=== PATIENT | female | born 1970 | race Caucasian/White ===

== ENCOUNTER → 2016-12-24 | Outpatient (CLI) | payer OTHER ==
[2016-10-09 18:00] VITALS: BP 116/80
[~2016-12-24] MED LIST: ALPR0.25 PO; BUPIVACAINE MPF 0.25% 10 ML VIAL. ONE; BUPR150T8 PO; CHOL500015 PO; CYCL10TA2 PO; GABA-585 PO; HYDR-2678 PO; HYDR-2679 PO; IBUP-1060 PO; IOHEXOL 180 MG/ML 10 ML VIAL. ONE; LACT1CAP8 PO; LEVO100T5 PO; LEVO50TA PO; MELO15TA6 PO; METH4TAB PO; MULT1TAB52 PO; NABU750T PO; NATURAL CALM; NORE1TAB85 PO; OMEG500C3 PO; [UNRECOGNIZED DRUG - OTHER]; methylPREDNISolone ACETATE 80 MG/ML VIAL. ONE
--- NOTE | 2016-12-25 03:10 | PN ---
DATE: 12/24/2016 DIAGNOSES: 1. Lumbar radiculopathy with lumbar degenerative disk disease, lumbar spondylosis. 2. Right sacroiliitis. HISTORY OF PRESENT ILLNESS: The patient is a 46-year-old female who returns for followup status post previous lumbar epidural steroid injections and facet joint injections without significant improvement, last seen on 02/12/2014. The patient reports that over that time, she has had significant pain in the right posterior hip as well as the low back radiating to the right posterior thigh and right groin into a fairly significant extent, worse with activity, standing, walking, especially with driving a car standing on her right leg. Any walking more than about 30 minutes causes significant pain where she needs to actually lay down to get the pressure reduced and the pain reduced. The patient reports no loss of motor function. She has started physical therapy recently, which she feels is becoming helpful with the pain with some decreased tightness in the right thigh and leg, but significant pain still in the posterior hip and back radiating to the right gluteus, occasionally, some tingling in the lower leg on the lateral aspect as well on the right side only. The patient reports it is causing some depression. She also had hysterectomy in 09/2016, which is helping with help some of the pelvic pain, but it has not significantly reduced it. Reports no loss of motor function, but significant fatigability in the right leg and again pain limiting her activities and her ability to participate in physical therapies. PAST MEDICAL HISTORY: Significant for gastroesophageal reflux, colitis, clindamycin, and arthritis. PREVIOUS SURGERY: , laparoscopic cholecystectomy and recent hysterectomy. CURRENT MEDICATIONS: Updated today and include collagen, iron, B complex vitamins, fish oil, ibuprofen, and thyroid replacement, and also Lortab. ALLERGIES: THE PATIENT HAS ALLERGY TO CLINDAMYCIN. FAMILY HISTORY: Significant for hypertension, arthritis, and strokes. SOCIAL HISTORY: The patient is a registered nurse working night shifts, currently part-time. Does not smoke, drinks alcohol very rarely, does not use any other illegal illicit drugs or other substances. REVIEW OF SYSTEMS: The patient's review of systems was updated as complete, full and well documented on the patient's chart. All systems reviewed and otherwise negative. PHYSICAL EXAMINATION: VITAL SIGNS: Today, the patient's blood pressure is 122/79, pulse 84, respirations 18, temperature 98.2 degrees Fahrenheit, and weight is 125 pounds. GENERAL: The patient is awake, alert, oriented, appropriate, very pleasant demeanor. HEENT: Head shows normocephalic and atraumatic. Extraocular movements are intact and symmetrical. Oral cavity, mucous membranes are moist and pink. Dentition is intact. NECK: Shows anterior throat supple without palpable lymphadenopathy noted. Swallow reflex is symmetrical. CHEST: Shows normal on inspection. Breath sounds clear to auscultation bilaterally. HEART: Shows S1 and S2 clear. No murmurs auscultated. ABDOMEN: Soft, flat, nontender, and nondistended. No palpable organomegaly noted. No rebound or guarding demonstrated. BACK: Shows spine grossly midline. Normal appearing thoracic kyphosis and lumbar lordotic curvature. Lumbar paraspinous muscle is symmetrical in appearance without scars, lesions or other abnormalities on the skin. Paraspinous musculature shows some very mild tenderness with palpation in the low lumbar distribution diffusely, more on the right than the the left, but again only diffusely with palpation over the posterior superior iliac spine on the right side with significant tenderness with palpation and radiation into the lateral hip and anterior aspect of the groin on the right side. This is true with palpation over the right sacroiliac regions as well, significant tenderness with palpation on the joint and radiation to the posterior gluteus, left side is nontender. The patient has good rotational motion of lumbar spine, both laterally as well as extension and flexion without significant increase in pain. Lower extremities show deep tendon reflexes 2+ in the patellar, 1+ tendo-calcaneus tendons are equal. Motor exam is strong with 5/5 dorsiflexion and extension. The patient does have some tenderness with right quadriceps and hamstring flexion and with external rotation of the right hip is significantly tender as well. Left side is nontender. Peripheral pulses are 2+ in the posterior tibial and dorsalis pedis pulses. No peripheral edema is noted. Options were discussed with the patient and the patient's old chart was reviewed and current medication regimen and updated as noted as well as previous review of systems updated. We discussed right sacroiliac joint injection. She has significant tenderness over this region with symptomatic qualities of sacroiliac degenerative changes also with x-ray evidence of mild degenerative change in the right sacroiliac joint. Risks were discussed including but not limited to bleeding, infection, possibility of intravascular injection sequelae, spread of local anesthetic and numbness, side effects of steroid medications, exposure to fluoroscopy as well as poor results regarding pain control. The patient understands and wishes to proceed. The patient will return to clinic in approximately 2 weeks for followup, was counseled on return appointment, activity level and side effects to be aware of. DIAGNOSIS: Right sacroiliitis. PROCEDURE: Right sacroiliac joint injection with C-arm fluoroscopic guidance under sterile prep and drape using local anesthetic. MEDICATIONS INJECTED: Depo-Medrol 80 mg plus 3 mL of 0.25% bupivacaine and 1.5 mL of Isovue contrast. CONDITION AT DISCHARGE: Stable. The patient tolerated procedure well, had no complications. HAMILTON FRIAS MD DR: EVA/jese JOB#: [id number] / [id number]
== END | disposition home or self-care (01) ==
LOC: PNCL 08:31
PROVIDERS: ATTEND Anesthesiology
DX: M46.1 Sacroiliitis, not elsewhere classified (principal); M51.16 Intervertebral disc disorders with radiculopathy, lumbar region; M47.26 Other spondylosis with radiculopathy, lumbar region; I10 Essential (primary) hypertension; M19.90 Unspecified osteoarthritis, unspecified site; Z90.49 Acquired absence of other specified parts of digestive tract; Z90.710 Acquired absence of both cervix and uterus; Z72.89 Other problems related to lifestyle
CPT/HCPCS: 27096; J1040; J3490; G0260

== ENCOUNTER → 2017-01-16 | Outpatient (CLI) | payer OTHER ==
[2016-10-09 18:00] VITALS: BP 116/80
[~2017-01-16] MED LIST changes: -BUPIVACAINE MPF 0.25% 10 ML VIAL. ONE; -IOHEXOL 180 MG/ML 10 ML VIAL. ONE; -methylPREDNISolone ACETATE 80 MG/ML VIAL. ONE
--- NOTE | 2017-01-16 10:10 | PAIN ---
DATE OF SERVICE: 01/16/2017 PROGRESS NOTE FOR PAIN CLINIC DIAGNOSES: 1. Lumbar radiculopathy with lumbar degenerative disk disease, lumbar spondylosis. 2. Right sacroiliitis. HISTORY OF PRESENT ILLNESS: The patient is a 46-year-old female, who returns for followup status post right-sided sacroiliac joint injection on 12/24/2009. The patient reports did very well with this, about 50% improvement overall took few days to ____ noticed a difference after about 3 days with feeling much better went to yoga class and feels that she "overdid it" with stretching in yoga and cause some pain, to return in the low back, but at that time, it was about 80% better, now is about 50%, overall the patient did have some significant diarrhea symptoms after the injection, but was able to keep herself hydrated and recover from this over a couple of days. The patient reports otherwise doing well. No new motor or sensory deficits. Still some pain in the low back, as well as in the right posterior hip, worse with walking and changing positions, standing. The patient reports 3 on a scale of 10 currently and some ____ electrical sensations as well occasionally in the low back and right hip. The patient reports otherwise no new motor or sensory deficits, no new bowel or bladder incontinence or other complaints. PHYSICAL EXAMINATION: VITAL SIGNS: Today, the patient's blood pressure is 119/70, pulse 88, respirations 16, temperature is 98.1 degrees Fahrenheit, weight is 119 pounds. GENERAL: The patient is awake, alert, oriented, appropriate, very pleasant demeanor. HEENT: Head shows normocephalic, atraumatic. Extraocular movements are intact and symmetrical. Oral cavity shows mucous membranes moist and pink. Dentition is intact. NECK: Shows anterior throat supple without palpable lymphadenopathy noted. Swallow reflex is symmetrical. Neck shows full rotational motion of the cervical spine without difficulty. CHEST: Shows normal on inspection. Breath sounds clear to auscultation bilaterally. HEART: Shows S1 and S2 clear. ABDOMEN: Soft, nontender, nondistended. No palpable organomegaly, no new rebound or guarding demonstrated. BACK: Shows spine grossly midline. Normal appearing thoracic kyphosis and lumbar lordotic curvature. Lumbar paraspinous muscle shows some [id number] tenderness bilaterally in the lumbar paraspinous muscles only in the inferior aspect without radiation with some moderate tenderness over the right sacroiliac joint as well as the posterior superior iliac spine on the right side, left side is nontender. The patient has full rotational motion of lumbar spine, both laterally as well as extension and flexion without difficulty. EXTREMITIES: Lower extremities showed deep tendon reflexes at 2+ in the patellar tendons. Motor exam is strong with 5/5 dorsiflexion, extension, quadriceps and hamstring flexion. PLAN: Options were discussed with the patient. We will hold on any further injection at this time, she is doing better and would like to increase her stretching and strengthening exercises. We did show her some stretches for the sacroiliac joint, bone in bilateral sides. The patient will follow up at this time on as needed basis. HAMILTON FRIAS MD DR: EVA/jese JOB#: [id number] / [id number]
== END | disposition home or self-care (01) ==
LOC: PNCL 07:41
PROVIDERS: ATTEND Anesthesiology
DX: M51.16 Intervertebral disc disorders with radiculopathy, lumbar region (principal); M47.896 Other spondylosis, lumbar region; M46.1 Sacroiliitis, not elsewhere classified
CPT/HCPCS: 99212

== ENCOUNTER → 2017-03-31 | Outpatient (CLI) | payer OTHER ==
[2016-10-09 18:00] VITALS: BP 116/80
[~2017-03-31] MED LIST changes: -CHOL500015 PO; +CHOL500045 PO
--- NOTE | 2017-03-31 17:35 | RAD ---
DATE: 03/31/2017 EXAM: DIGITAL SCREEN BILAT W/CAD HISTORY: Screening study. COMPARISON: 01/23/2016 This study was interpreted with the benefit of Computerized Aided Detection (CAD). FINDINGS: Digital MLO and CC mammograms of both breasts were obtained. Comparison study is dated 01/19/2016. The breast parenchyma is heterogeneously dense which can obscure a lesion on mammography (breast density code C). Benign-appearing calcifications are seen within both breasts. No spiculated mass is seen. No malignant appearing calcification or area of architectural distortion is noted. Since the previous examination there has been no significant interval change. IMPRESSION: BI-RADS Category 1, negative. There is no mammographic evidence of malignancy. Routine yearly screening mammography is recommended for follow-up. BI-RADS CATEGORY: 1 NEGATIVE RECOMMENDED FOLLOW-UP: 12M 12 MONTH FOLLOW-UP PQRS compliance statement: Patient information was entered into a reminder system with a target due date 03/31/2018 for the next mammogram. Mammography is a sensitive method for finding small breast cancers, but it does not detect them all and is not a substitute for careful clinical examination. A negative mammogram does not negate a clinically suspicious finding and should not result in delay in biopsying a clinically suspicious abnormality. "Our facility is accredited by the [employer] Mammography Program."
== END | disposition home or self-care (01) ==
LOC: MAMMO 13:57
PROVIDERS: ATTEND Family Medicine
DX: Z12.31 Encounter for screening mammogram for malignant neoplasm of breast (principal); G89.18 Other acute postprocedural pain
CPT/HCPCS: 36415; G0202; 77067

== ENCOUNTER → 2017-10-01 | Outpatient (CLI) | payer OTHER ==
[2016-10-09 18:00] VITALS: BP 116/80
[2017-10-01 18:50] LABS: BASO % 0 % (0-3); EOS % 1 % (0-3); HEMOGLOBIN 12.5 g/dL (12.0-15.5); LYMPH # 1.8 x10^3/uL (1.0-4.8); LYMPH % 27 % (24-48); MEAN CORPUSCULAR HEMOGLOBIN 30 pg (25-35); MEAN CORPUSCULAR HGB CONC 33 g/dL (31-37); MEAN CORPUSCULAR VOLUME 92 fL (79-100); MONO % 6 % (0-9); NEUT % 66 % (31-73); PLATELET COUNT 202 x10^3/uL (140-400); RED BLOOD COUNT 4.14 x10^6/uL (3.50-5.40); RED CELL DISTRIBUTION WIDTH 12.7 % (11.5-14.5); WHITE BLOOD COUNT 6.6 x10^3/uL (4.0-11.0)
[2017-10-01 19:06] LABS: ALBUMIN 3.7 g/dL (3.4-5.0); ALBUMIN/GLOBULIN RATIO 1.2 (1.0-1.7); CALCIUM 8.1 mg/dL (8.5-10.1); CREATININE 0.7 mg/dL (0.6-1.0); GFR 90.9; POTASSIUM 3.8 mmol/L (3.5-5.1); TOTAL BILIRUBIN 0.3 mg/dL (0.2-1.0); TOTAL PROTEIN 6.9 g/dL (6.4-8.2)
== END | disposition home or self-care (01) ==
LOC: LAB 18:09
PROVIDERS: ATTEND Family Medicine
DX: E03.9 Hypothyroidism, unspecified (principal); M79.1 Myalgia; G62.9 Polyneuropathy, unspecified; R53.82 Chronic fatigue, unspecified; R19.7 Diarrhea, unspecified
CPT/HCPCS: 80053; 82607; 84436; 84443; 85025; 85651

== ENCOUNTER → 2017-10-05 | Outpatient (CLI) | payer OTHER ==
[2016-10-09 18:00] VITALS: BP 116/80
[2017-10-05 22:14] LABS: IMMUNOGLOBULIN A 133 mg/dL (87-352); IMMUNOGLOBULIN G 970 mg/dL (700-1600); IMMUNOGLOBULIN M 53 mg/dL (26-217)
[2017-10-07 13:20] LABS: TRANSGLUTAMINASE IGA AB <2 U/mL (0-3)
== END | disposition home or self-care (01) ==
LOC: LAB 11:01
PROVIDERS: ATTEND Allergy & Immunology
DX: R19.7 Diarrhea, unspecified (principal)
CPT/HCPCS: 36415; 82784; 83516

== ENCOUNTER → 2018-03-25 | Outpatient (CLI) | payer OTHER ==
[2018-03-25 17:20] LABS: FREE T4 0.86 ng/dL (0.76-1.46)
[2018-03-25 17:20] LABS: THYROID STIM HORMONE (TSH) 2.221 uIU/mL (0.358-3.74)
[2018-03-26 03:15] LABS: ESTRADIOL LEVEL 79.9 pg/mL (.)
[2018-03-26 03:15] LABS: FSH 4.7 mIU/mL (.)
== END | disposition home or self-care (01) ==
LOC: LAB 16:29
DX: N95.1 Menopausal and female climacteric states (principal)
CPT/HCPCS: 36415; 82670; 83001; 84439; 84443

== ENCOUNTER → 2018-07-12 | Outpatient (CLI) | payer OTHER ==
[2016-10-09 18:00] VITALS: BP 116/80
[2018-07-12 08:59] LABS: ALBUMIN 3.9 g/dL (3.4-5.0); ALBUMIN/GLOBULIN RATIO 1.2 (1.0-1.7); CALCIUM 8.7 mg/dL (8.5-10.1); CREATININE 0.8 mg/dL (0.6-1.0); GFR 77.6; POTASSIUM 4.2 mmol/L (3.5-5.1); TOTAL BILIRUBIN 0.4 mg/dL (0.2-1.0); TOTAL PROTEIN 7.2 g/dL (6.4-8.2)
[2018-07-12 09:23] LABS: FREE T4 0.82 ng/dL (0.76-1.46); THYROID STIM HORMONE (TSH) 0.952 uIU/mL (0.358-3.74)
[2018-07-12 20:11] LABS: FSH 5.6 mIU/mL (.); LUTEINIZING HORMONE 11.7 mIU/mL (.)
== END | disposition home or self-care (01) ==
LOC: LAB 08:08
PROVIDERS: ATTEND Internal Medicine Endocrinology, Diabetes & Metabolism
DX: E03.9 Hypothyroidism, unspecified (principal); I10 Essential (primary) hypertension; E87.6 Hypokalemia; K21.9 Gastro-esophageal reflux disease without esophagitis; R53.83 Other fatigue; Z87.891 Personal history of nicotine dependence; Z88.1 Allergy status to other antibiotic agents
CPT/HCPCS: 36415; 80053; 82533; 82670; 83001; 83002; 83036; 84439; 84443

== ENCOUNTER → 2019-03-24 | Outpatient (CLI) | payer OTHER ==
[2016-10-09 18:00] VITALS: BP 116/80
--- NOTE | 2019-03-24 11:59 | RAD ---
DATE: 03/24/2019. : MAMMO SHAE SCREENING BILATERAL. HISTORY: Routine mammographic screening. COMPARISON: 03/31/2017. This study was interpreted with the benefit of Computerized Aided Detection (CAD). FINDINGS: Breast Density: HETERO The breast parenchyma is heterogenously dense, which could reduce sensitivity of mammography. Breast parenchyma level C.. There are no suspicious masses, microcalcifications or architectural distortion. Scattered and coarse calcifications are benign. The parenchymal pattern is stable. A density medially on the left CC view has correlates on remote studies. BI-RADS CATEGORY: 2 BENIGN FINDING(S). RECOMMENDED FOLLOW-UP: 12M 12 MONTH FOLLOW-UP. PQRS compliance statement: Patient information was entered into a reminder system with a target due date 03/24/2020 for the next mammogram. Mammography is a sensitive method for finding small breast cancers, but it does not detect them all and is not a substitute for careful clinical examination. A negative mammogram does not negate a clinically suspicious finding and should not result in delay in biopsying a clinically suspicious abnormality. "Our facility is accredited by the [employer] Mammography Program."
--- NOTE | 2019-03-24 12:17 | RAD ---
MR of the right hip HISTORY: Right-sided hip pain. SI joint pain. TECHNIQUE: Routine multiplanar sequences are obtained. FINDINGS: No bone lesion, bone destruction, acute fracture. No femoral head osteonecrosis. The right sacroiliac joint is included and appears intact. No significant joint effusion at the right hip. Low-grade signal at the anterior labrum but no convincing evidence of a tear. Mild free pelvic fluid. Mild distention of the urinary bladder. There are degenerative changes of lower spine with disc bulging or protrusion at the lumbosacral junction, will be further evaluated on a separate MR of the lumbar spine to be performed today as well. Gluteus minimus and medius tendon attachments are intact. Hamstring tendon attachment intact. Iliopsoas tendon attachment intact. IMPRESSION: 1. No evidence of acute abnormality or internal derangement. 2. Minimal signal at the anterior labrum, but no convincing evidence of a tear. 3. Lumbosacral degenerative disease, correlate with separate MR lumbar spine report. Electronically signed by: Steven Mares MD (03/24/2019 12:14 PM) [id number]
--- NOTE | 2019-03-24 12:53 | RAD ---
MRI of the lumbar spine without contrast 03/24/2019 CLINICAL HISTORY: Low back pain which radiates down the right leg. TECHNIQUE: Unenhanced T1-weighted and T2-weighted sagittal and axial and inversion recovery sagittal images of the lumbar spine were obtained. FINDINGS: Comparison study is dated 01/23/2016. Minimal S-shaped curvature of the thoracolumbar spine is seen. Degenerative signal changes are seen involving the L5-S1 disc. Degenerative signal changes are seen within the marrow surrounding these discs. The conus medullaris is within normal limits in morphology, position, and signal characteristics. At the L1-2, L2-3, L3-4 and L4-5 disc spaces there are minimal to mild generalized disc bulges. Degenerative changes are seen involving the facet joints bilaterally. There is mild ligamentum flavum hypertrophy bilaterally. These findings when combined do not result in significant central spinal canal or neural foraminal stenosis. At the L5-S1 disc space there is a mild generalized disc bulge. Superimposed on this disc bulge is a focal central disc protrusion. This measures 2 mm in AP diameter. Degenerative changes are seen involving the facet joints bilaterally. There is mild ligamentum flavum hypertrophy bilaterally. These findings when combined do not result in significant central spinal canal or neural foraminal stenosis. Since the previous examination there has been no significant interval change. IMPRESSION: The changes of mild degenerative disc disease are seen involving the lumbar spine. These findings do not result in significant central spinal canal or neural foraminal stenosis at any level. Electronically signed by: Mauricio Horton MD (03/24/2019 12:50 PM) [id number]
== END | disposition home or self-care (01) ==
LOC: MRI 07:53
PROVIDERS: ATTEND Family Medicine
DX: Z12.31 Encounter for screening mammogram for malignant neoplasm of breast (principal); N64.89 Other specified disorders of breast; N32.89 Other specified disorders of bladder; M51.37 Other intervertebral disc degeneration, lumbosacral region; M51.16 Intervertebral disc disorders with radiculopathy, lumbar region; M47.817 Spondylosis without myelopathy or radiculopathy, lumbosacral region; M47.26 Other spondylosis with radiculopathy, lumbar region; M89.38 Hypertrophy of bone, other site
CPT/HCPCS: 72148; 72195; 77063; 77067

== ENCOUNTER → 2019-08-08 | Outpatient (CLI) | payer OTHER ==
[2016-10-09 18:00] VITALS: BP 116/80
[2019-08-08 13:27] LABS: FREE T4 1.03 ng/dL (0.76-1.46); THYROID STIM HORMONE (TSH) 0.735 uIU/mL (0.358-3.74)
== END | disposition home or self-care (01) ==
LOC: LAB 12:05
PROVIDERS: ATTEND Family Medicine
DX: E03.9 Hypothyroidism, unspecified (principal)
CPT/HCPCS: 36415; 84439; 84443

== ENCOUNTER → 2020-01-22 | Outpatient (CLI) | payer OTHER ==
[2016-10-09 18:00] VITALS: BP 116/80
[2020-01-22 10:16] LABS: BASO % 0 % (0-3); BILIRUBIN,URINE NEGATIVE (NEG); CLARITY,URINE CLEAR; COLOR,URINE YELLOW; EOS % 1 % (0-3); HEMOGLOBIN 13.9 g/dL (12.0-15.5); LYMPH # 1.4 x10^3/uL (1.0-4.8); LYMPH % 24 % (24-48); MEAN CORPUSCULAR HEMOGLOBIN 31 pg (25-35); MEAN CORPUSCULAR HGB CONC 33 g/dL (31-37); MEAN CORPUSCULAR VOLUME 92 fL (79-100); MONO # 0.3 x10^3/uL (0.0-1.1); MONO % 6 % (0-9); NEUT % 69 % (31-73); NITRITE,URINE NEGATIVE (NEG); PH,URINE 7.5 (<5.0-8.0); PLATELET COUNT 223 x10^3/uL (140-400); PROTEIN,URINE NEGATIVE (NEG-TRACE); RED BLOOD COUNT 4.55 x10^6/uL (3.50-5.40); RED CELL DISTRIBUTION WIDTH 13.3 % (11.5-14.5); UROBILINOGEN,URINE 0.2 mg/dL (0.2 mg/dL); WHITE BLOOD COUNT 5.8 x10^3/uL (4.0-11.0)
[2020-01-22 10:29] LABS: BACTERIA,URINE 0 /HPF (0-FEW); RBC,URINE 0 /HPF (0-2); SQUAMOUS EPITHELIAL CELL,UR FEW /LPF; WBC,URINE 0 /HPF (0-4)
[2020-01-22 11:03] LABS: ALBUMIN/GLOBULIN RATIO 1.3 (1.0-1.7); ALK PHOS 42 U/L (46-116); ALT (SGPT) 22 U/L (14-59); ANION GAP 7 (6-14); AST (SGOT) 19 U/L (15-37); BLOOD UREA NITROGEN 12 mg/dL (7-20); BUN/CREATININE RATIO 13 (6-20); CALCIUM 8.5 mg/dL (8.5-10.1); CARBON DIOXIDE 30 mmol/L (21-32); CHLORIDE 101 mmol/L (98-107); CHOLESTEROL 139 mg/dL (0-200); CREATININE 0.9 mg/dL (0.6-1.0); GFR 67.1; GLUCOSE 86 mg/dL (70-99); HDLC 55 mg/dL (40-60); LDLC 71 mg/dL (0-100); POTASSIUM 3.8 mmol/L (3.5-5.1); SODIUM 138 mmol/L (136-145); TOTAL BILIRUBIN 0.3 mg/dL (0.2-1.0); TOTAL PROTEIN 7.2 g/dL (6.4-8.2); TRIGLYCERIDES 63 mg/dL (0-150); VLDLC 13 mg/dL (0-40)
[2020-01-22 11:04] LABS: CHOLESTEROL/HDL RATIO 2.5; FREE T4 0.78 ng/dL (0.76-1.46); THYROID STIM HORMONE (TSH) 1.099 uIU/mL (0.358-3.74)
[2020-01-22 11:53] LABS: C-REACTIVE PROTEIN < 0.5 mg/L (0-3.3)
[2020-01-22 22:07] LABS: ESTRADIOL LEVEL 398.7 pg/mL (.); ESTRADIOL LEVEL 400.7 pg/mL (.); LUTEINIZING HORMONE 7.9 mIU/mL (.); PROGESTERONE 0.4 ng/mL (.); PROLACTIN 8.8 ng/mL (4.8-23.3)
[2020-01-23 02:06] LABS: HEMOGLOBIN A1C 5.3 % (4.8-5.6)
== END ==
LOC: LAB 09:19
DX: E27.49 Other adrenocortical insufficiency (principal); E27.9 Disorder of adrenal gland, unspecified; E78.5 Hyperlipidemia, unspecified; E88.9 Metabolic disorder, unspecified; R68.82 Decreased libido; E56.9 Vitamin deficiency, unspecified; R53.83 Other fatigue; E34.9 Endocrine disorder, unspecified; R63.5 Abnormal weight gain; E63.9 Nutritional deficiency, unspecified; E07.9 Disorder of thyroid, unspecified; E03.9 Hypothyroidism, unspecified
CPT/HCPCS: 80053; 80061; 81001; 82306; 82525; 82533; 82607; 82627; 82670; 82679; 82728; 83001; 83002; 83036; 83090; 83540; 83550; 84144; 84146; 84305; 84410; 84439; 84443; 84481; 84630; 85025; 86140; 86376

== ENCOUNTER → 2020-02-14 | Outpatient (CLI) | payer OTHER ==
[2016-10-09 18:00] VITALS: BP 116/80
[~2020-02-14] MED LIST changes: +ACET500T68 PO; +BUPIVACAINE MPF 0.25% 10 ML VIAL. ONE; +CYAN50004 PO; +KRIL1CAP5 PO; +MELO15TA23 PO; +MULT-121 PO; +SELE200C PO; +TURM500C4 PO
--- NOTE | 2020-02-14 09:51 | PAIN ---
DATE OF SERVICE: 02/14/2020 PROGRESS NOTE FOR PAIN CLINIC DIAGNOSES: Lumbar degenerative disk disease, lumbar spondylosis and right sacroiliitis and myofascial pain. HISTORY OF PRESENT ILLNESS: The patient is a 49-year-old female who returns for followup, last seen in 12/2016. The patient had right sacroiliac joint injection with about 50% improvement, only lasted about 1 month or so after the injection. The patient reports since that time, she has had multiple treatments with physical therapies, doing stretching and strengthening. She tried multiple medications, currently taking gabapentin and with significant pain in the low back, right side, right flank also into the mid upper back and into the right posterior gluteus, lateral thigh, groin and anterior thigh and into the pelvis as well on the right side and some into the flank and even into the lower abdominal aspect of the right side. The patient reports it is aching, sharp, tingling, burning, on and off in intensity. She has had multiple physical therapy treatments in the past and doing stretching and strengthening on her own. The patient reports current pain is 7 on a scale of 10 at its worst over the past week, 5 on average, 3 at its least and is a 5 today. The patient reports it is worse with walking, standing, changing positions, being on her feet, especially during working shifts when she is unable to sit or relax for prolonged periods. The patient reports it is becoming more noticeable, more tender with time. 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 She has had sacroiliac joint injections in the past as well with our office, which again were helpful, but only for a limited time. The patient reports the steroid medications have caused some gastrointestinal discomfort as well over the years and is not interested in any steroid injections. The patient describes the pain as tingling, burning, aching, sharp, on and off in intensity. The patient reports it awakens her from sleep occasionally, but she is taking gabapentin at night, which does decrease the frequency awakening. PHYSICAL EXAMINATION: VITAL SIGNS: The patient's blood pressure 115/71, pulse 83, respirations 16, temperature 98.1 degrees Fahrenheit, height is 5 feet 5 inches, weight is 133 pounds. GENERAL: The patient is awake, alert, oriented, appropriate, very pleasant demeanor. HEENT: Shows normocephalic, atraumatic. Extraocular movements are intact and symmetrical. Oral cavity: Mucous membranes moist and pink. Dentition is intact. NECK: Shows anterior throat supple without palpable lymphadenopathy noted. Swallow reflex symmetrical. CHEST: Shows normal on inspection. Breath sounds are clear to auscultation bilaterally. HEART: Shows S1, S2 clear. No murmurs auscultated. ABDOMEN: Soft, nontender, nondistended. BACK: Shows spine grossly in the midline, normal-appearing cervical lordotic curvature, thoracic kyphotic curvature and lumbar lordotic curvature. With respect to the thoracic paraspinous muscles and lumbar paraspinous muscles of very firm, very tender band-like and rope-like musculature in the inferior thoracic paraspinous musculature in the upper, middle and lower distribution of the lumbar paraspinous musculature as well as into the gluteus musculature on the right side, especially above and below of the posterior superior iliac spine and the iliac crest laterally with very firm rope-like musculature, very tender and is very minimally tender on the left side with very subtle musculature on the left, but much less tight compared to the right, still tenderness over the sacrum to moderate extent as well as the sacroiliac region on the right in the posterior superior iliac spine itself. EXTREMITIES: The patient's lower extremities show deep tendon reflexes 2+ in the patellar and 1+ tendo-calcaneus tendons. Motor exam is strong with 5/5 dorsiflexion, extension, quadriceps and hamstring flexion symmetrical. Peripheral pulses are 1+ posterior tibia. No peripheral edema is noted bilaterally. PLAN: Options were discussed with the patient. The patient's old chart was reviewed as her current medication regimen updated. Current review of systems updated today as well. We will proceed with trigger point injections of the identified musculature. Risks were discussed including but not limited to bleeding, infection, possibility of intravascular injection sequelae, spread of local anesthetic and numbness, side effects of steroid medication and poor results regarding pain control. The patient understands and wished to proceed. The patient will return to clinic in approximately 2 weeks for followup. Also order physical therapy with trigger point massage and myofascial release techniques, stretching, postural retraining as well as massage and lumbar traction. The patient will follow up after physical therapy is initiated as noted. DIAGNOSIS: Myofascial pain. PROCEDURE: Trigger point injections, right-sided thoracic paraspinous muscles, right-sided lumbar paraspinous musculature and right gluteus musculature under sterile prep and drape using local anesthetic. MEDICATION INJECTED: A total of 8 mL of 0.25% bupivacaine after negative aspiration at each injection site. CONDITION AT DISCHARGE: Stable. The patient tolerated procedure well, had no complications. HAMILTON FRIAS MD DR: EVA/jese JOB#: [id number] / [id number]
== END ==
LOC: PNCL 09:15
PROVIDERS: ATTEND Anesthesiology
DX: M79.18 Myalgia, other site (principal); M51.36 Other intervertebral disc degeneration, lumbar region; M47.816 Spondylosis without myelopathy or radiculopathy, lumbar region
CPT/HCPCS: 20553; J3490

== ENCOUNTER → 2020-03-22 | Outpatient (CLI) | payer OTHER ==
[2016-10-09 18:00] VITALS: BP 116/80
[~2020-03-22] MED LIST changes: -BUPIVACAINE MPF 0.25% 10 ML VIAL. ONE; +IOHEXOL 180 MG/ML 10 ML VIAL. ONE; +MULT-445 PO; -MULT1TAB52 PO; +methylPREDNISolone ACETATE 40 MG/ML VIAL. ONE; +methylPREDNISolone ACETATE 80 MG/ML VIAL. ONE
--- NOTE | 2020-03-22 10:50 | PAIN ---
DATE OF SERVICE: 03/22/2020 PROGRESS NOTE FOR PAIN CLINIC DIAGNOSES: 1. Lumbar radiculopathy with lumbar degenerative disk disease and lumbar spondylosis. 2. Right sacroiliitis. 3. Myofascial pain. HISTORY OF PRESENT ILLNESS: The patient is a 49-year-old female who returns for followup status post trigger point injection on last visit, which was 02/14/2020. The patient reports she did well with this for a limited period of time for about 3 weeks. The pain was decreased only about 50%. The pain is returning now on the right side of the low back, right lower extremity, radiating now mostly in the posterior gluteus, posterior thigh, lateral thigh, anterior thigh and posterior calf with tingling, burning, tight sensation, aching, sharp, on and off in intensity, but worse with activity, worse with working out and stretching. The patient has been seeing a chiropractor for manipulations which is helpful as well, but again limited time. Also, performing physical therapy both with physical therapist and on her own, which again is helpful, but only temporarily as well. The patient reports it awakens her from sleep about every 4 hours at night. She has to reposition and get back to sleep. No bowel or bladder incontinence. The patient reports the pain is a 9 on a scale of 10 at its worst over the past week, 5 on average, 2 at its least and is a 5 today. The patient reports no bowel or bladder incontinence. No motor or sensory deficits. PHYSICAL EXAMINATION: VITAL SIGNS: The patient's blood pressure 108/65, pulse 101, respirations 18, temperature 97.9 degrees Fahrenheit, height is 5 feet 5 inches, weight is 131 pounds. GENERAL: The patient is awake, alert, oriented, appropriate, very pleasant demeanor. HEENT: Shows normocephalic, atraumatic. Extraocular movements are intact and symmetrical. Oral cavity: Mucous membranes moist and pink. Dentition is intact. NECK: Shows anterior throat supple without palpable lymphadenopathy noted. Swallow reflex symmetrical. CHEST: Shows normal on inspection. Breath sounds clear to auscultation bilaterally. No rales, rhonchi or wheezes auscultated. HEART: Shows S1, S2 clear. No murmurs auscultated. ABDOMEN: Soft, nontender, nondistended. BACK: Shows spine grossly in the midline. Normal appearing thoracic kyphosis and lumbar lordotic curvature. Lumbar paraspinous muscle shows symmetrical on inspection, with palpation shows some moderate tenderness, more on the right than the left, but throughout the upper, middle and lower distribution of paraspinous musculature and some into the thoracic paraspinous on the right as well, but without specific trigger points, without atrophy, hypertrophy, no asymmetry. The patient has good rotational motion of lumbar spine, both laterally as well as extension and flexion without significant increase in pain. There is some very mild tenderness with deep palpation over the right posterior superior iliac spine and superior aspect of the sacroiliac joint, but only very mild tenderness without radiation. EXTREMITIES: The patient's lower extremities show deep tendon reflexes 2+ in the patellar, 1+ tendo-calcaneus tendons. Motor exam is 5/5 with dorsiflexion, extension, quadriceps and hamstring flexion symmetrical. Peripheral pulses are 1+ posterior tibia. No peripheral edema is noted. Gaenslen's maneuver is mildly positive on the right only, but not the left. Stuart's maneuver is negative bilaterally. Options were discussed with the patient. The patient's old chart was reviewed as her current medication regimen updated. Current review of systems updated today as well. We will proceed with a lumbar epidural steroid injection today with fluoroscopic guidance. Risks were discussed including but not limited to bleeding, infection, possibility of epidural hematoma, subsequent neurological compromise, dural puncture, headaches, spinal cord and/or nerve damage, side effects of steroid medication and poor results regarding pain control. The patient understands and wished to proceed. The patient will return to clinic in approximately 2 weeks for followup. She was counseled on return appointment, activity level and side effects to be aware of. DIAGNOSES: Lumbar radiculopathy with lumbar degenerative disk disease and lumbar spondylosis. PROCEDURE: Lumbar epidural steroid injection, translaminar approach L5-S1 level using C-arm fluoroscopic guidance under sterile prep and drape using local anesthetic. MEDICATION INJECTED: A total of 120 mg Depo-Medrol plus 10 mL of preservative-free normal saline and 2 mL of contrast. CONDITION AT DISCHARGE: Stable. The patient tolerated the procedure well, had no complications. HAMILTON FRIAS MD DR: EVA/jese JOB#: [id number] / [id number]
== END ==
LOC: PNCL 08:31
PROVIDERS: ATTEND Anesthesiology
DX: M51.16 Intervertebral disc disorders with radiculopathy, lumbar region (principal); M47.816 Spondylosis without myelopathy or radiculopathy, lumbar region; M46.1 Sacroiliitis, not elsewhere classified; M79.18 Myalgia, other site
CPT/HCPCS: 62323; J1030; J1040; Q9965

== ENCOUNTER → 2020-03-28 | Outpatient (CLI) | payer OTHER ==
[2016-10-09 18:00] VITALS: BP 116/80
[~2020-03-28] MED LIST changes: -IOHEXOL 180 MG/ML 10 ML VIAL. ONE; -methylPREDNISolone ACETATE 40 MG/ML VIAL. ONE; -methylPREDNISolone ACETATE 80 MG/ML VIAL. ONE
[2020-03-28 11:02] LABS: BASO % 0 % (0-3); EOS # 0.1 x10^3/uL (0.0-0.7); EOS % 1 % (0-3); HEMATOCRIT 37.8 % (36.0-47.0); HEMOGLOBIN 12.9 g/dL (12.0-15.5); LYMPH # 1.5 x10^3/uL (1.0-4.8); LYMPH % 23 % (24-48); MEAN CORPUSCULAR HEMOGLOBIN 31 pg (25-35); MEAN CORPUSCULAR HGB CONC 34 g/dL (31-37); MEAN CORPUSCULAR VOLUME 92 fL (79-100); MONO # 0.5 x10^3/uL (0.0-1.1); MONO % 7 % (0-9); NEUT # 4.6 x10^3/uL (1.8-7.7); NEUT % 69 % (31-73); PLATELET COUNT 227 x10^3/uL (140-400); RED BLOOD COUNT 4.12 x10^6/uL (3.50-5.40); RED CELL DISTRIBUTION WIDTH 12.8 % (11.5-14.5); WHITE BLOOD COUNT 6.7 x10^3/uL (4.0-11.0)
[2020-03-28 11:14] LABS: ALBUMIN 3.9 g/dL (3.4-5.0); ALBUMIN/GLOBULIN RATIO 1.2 (1.0-1.7); CALCIUM 8.2 mg/dL (8.5-10.1); GFR 59.4; POTASSIUM 3.9 mmol/L (3.5-5.1); TOTAL BILIRUBIN 0.2 mg/dL (0.2-1.0); TOTAL PROTEIN 7.1 g/dL (6.4-8.2)
[2020-04-04 17:09] LABS: ESTRADIOL LEVEL 37.6 pg/mL (.); PROGESTERONE 0.3 ng/mL (.)
== END ==
LOC: LAB 10:31
PROVIDERS: ATTEND Specialist/Technologist, Other Surgical Technologist
DX: E27.49 Other adrenocortical insufficiency (principal); E27.9 Disorder of adrenal gland, unspecified; E78.5 Hyperlipidemia, unspecified; E88.9 Metabolic disorder, unspecified; R68.82 Decreased libido; E56.9 Vitamin deficiency, unspecified; R53.83 Other fatigue; E34.9 Endocrine disorder, unspecified; R63.5 Abnormal weight gain; E63.9 Nutritional deficiency, unspecified; E07.9 Disorder of thyroid, unspecified; E03.9 Hypothyroidism, unspecified
CPT/HCPCS: 36415; 80053; 82627; 82670; 82679; 84144; 84402; 84403; 84439; 84481; 85025

== ENCOUNTER → 2020-04-18 | Outpatient (CLI) | payer OTHER ==
[2016-10-09 18:00] VITALS: BP 116/80
[2020-04-18 11:26] LABS: FREE T4 0.8 ng/dL (0.76-1.46)
[2020-04-18 21:08] LABS: ESTRADIOL LEVEL 76.5 pg/mL (.)
== END | disposition home or self-care (01) ==
LOC: LAB 10:37
DX: E78.5 Hyperlipidemia, unspecified (principal); E56.9 Vitamin deficiency, unspecified; E03.9 Hypothyroidism, unspecified; E34.9 Endocrine disorder, unspecified; E07.9 Disorder of thyroid, unspecified; E63.9 Nutritional deficiency, unspecified; E27.49 Other adrenocortical insufficiency; E27.9 Disorder of adrenal gland, unspecified; E88.9 Metabolic disorder, unspecified; R68.82 Decreased libido; R53.83 Other fatigue; R63.5 Abnormal weight gain
CPT/HCPCS: 36415; 82627; 82670; 82679; 84402; 84403; 84439; 84481

== ENCOUNTER → 2020-05-11 | Outpatient (CLI) | payer OTHER ==
[2016-10-09 18:00] VITALS: BP 116/80
--- NOTE | 2020-05-11 09:31 | PAIN ---
DATE OF SERVICE: 05/11/2020 PROGRESS NOTE FOR PAIN CLINIC DIAGNOSES: Lumbar radiculopathy with lumbar degenerative disk disease, lumbar spondylosis and right sacroiliitis and myofascial pain. HISTORY OF PRESENT ILLNESS: The patient is a 49-year-old female who returns for followup status post lumbar epidural steroid injection on 03/22/2020. The patient has had previous trigger point injections as well as sacroiliac injections multiple times with only about 40% improvement for a short period of time for about 2 weeks to 1 month depending on the procedure. The patient continues to have exacerbation of right sided pain, mid back, low back, upper back and shoulder, right side, right flank, right abdomen and right leg. The patient reports the pain is aching, sharp, but tight at times, tingling, burning, stabbing in the back and radiating to the leg at times. The patient reports also some increased pain in the right groin as well as right abdominal wall with the exacerbation of pain in the low back. The patient reports it is an 8 on a scale of 10 at its worst over the past week, 5 on average and 4 at its least and is a 5 today. The patient reports exacerbation with recent yoga stretching activities with right sided abdominal wall pain as well as right sided mid-upper back and shoulder pain as well as right low back pain. The patient is somewhat frustrated that the pain keeps returning despite multiple treatments and multiple modalities, it is improved temporarily, but only temporarily. The patient reports no new motor or sensory deficits, no bowel or bladder incontinence. PHYSICAL EXAMINATION: VITAL SIGNS: The patient's blood pressure is 111/74, pulse 84, respirations 18, temperature 98.0 degrees Fahrenheit, height is 5 feet 5 inches, weight is 134 pounds. GENERAL: The patient is awake, alert, oriented, appropriate, very pleasant demeanor. HEENT: Shows normocephalic, atraumatic. Extraocular movements are intact and symmetrical. Oral cavity: Mucous membranes are moist and pink. NECK: Shows anterior throat supple. Swallow reflex symmetrical. CHEST: Shows normal on inspection. Breath sounds are clear to auscultation bilaterally. No rales, rhonchi or wheezes auscultated. HEART: Shows S1, S2 clear. No murmurs auscultated. ABDOMEN: Soft, nontender. BACK: Shows spine grossly in the midline. Normal appearing cervical lordotic curvature, thoracic kyphotic curvature and lumbar lordotic curvature. Muscle tone is intact with somewhat increased tone and tight in the thoracic paraspinous musculature as well as the supra and infraspinatus musculature on the right, but not the left. This is true into the thoracic paraspinous musculature on the right side, more tender and firm than on the left, but without specific trigger points or radiation. The patient's lumbar spine shows normal lordotic curvature. Paraspinous musculature is bilaterally tender, but more tender on the right than the left, but firm throughout the upper, middle and lower distribution of paraspinous muscles. The patient has good rotational motion of the lumbar spine, both laterally greater than 10 degrees right and left as well as extension greater than 10 degrees, forward flexion 45 degrees without significant increase in pain. EXTREMITIES: The patient's lower extremities show deep tendon reflexes 2+ in the patellar, 1+ tendo-calcaneus tendons. Motor exam is strong with 5/5 dorsiflexion and extension. Peripheral pulses are 1+. No peripheral edema bilaterally. Options were discussed with the patient. The patient's old chart was reviewed as her current medication regimen updated. Current review of systems updated today as well. As the patient has had multiple modalities, sacroiliac joint injections, lumbar epidural steroid injections, trigger point injections in the musculature with only minimal decrease in pain, long-term approximately 40% at best on most times. We will recommend evaluation with regenerative therapy options as these may afford some longer long-term improvement. The patient will continue with stretching and strength exercises, activity as tolerated and exercise routinely and consistently, but with history of multiple modalities of procedure as well as physical therapies, exercises, etc., with only minimal long-term relief, we recommended regenerative options and the patient requests referral for such evaluation and we will make that referral, followup afterwards. HAMILTON FRIAS MD DR: EVA/jese JOB#: [id number] / [id number]
== END | disposition home or self-care (01) ==
LOC: PNCL 08:05
PROVIDERS: ATTEND Anesthesiology
DX: M51.16 Intervertebral disc disorders with radiculopathy, lumbar region (principal); M47.816 Spondylosis without myelopathy or radiculopathy, lumbar region; M46.1 Sacroiliitis, not elsewhere classified; Z79.899 Other long term (current) drug therapy
CPT/HCPCS: G0463

== ENCOUNTER → 2020-06-26 | Outpatient (CLI) | payer OTHER ==
[2016-10-09 18:00] VITALS: BP 116/80
[2020-06-26 13:38] LABS: FREE T4 0.8 ng/dL (0.76-1.46)
[2020-06-26 21:07] LABS: ESTRADIOL LEVEL 95.5 pg/mL (.)
== END | disposition home or self-care (01) ==
LOC: LAB 10:08
PROVIDERS: ATTEND Specialist/Technologist, Other Surgical Technologist
DX: E27.49 Other adrenocortical insufficiency (principal); E27.9 Disorder of adrenal gland, unspecified; R63.5 Abnormal weight gain; E07.9 Disorder of thyroid, unspecified; E78.5 Hyperlipidemia, unspecified; E88.9 Metabolic disorder, unspecified; R68.82 Decreased libido; N39.9 Disorder of urinary system, unspecified; E03.9 Hypothyroidism, unspecified; E63.9 Nutritional deficiency, unspecified; E34.9 Endocrine disorder, unspecified; N92.6 Irregular menstruation, unspecified
CPT/HCPCS: 36415; 82627; 82670; 82679; 84144; 84402; 84403; 84439; 84481

== ENCOUNTER → 2020-08-06 | Outpatient (CLI) | payer OTHER ==
[2016-10-09 18:00] VITALS: BP 116/80
[~2020-08-06] MED LIST changes: -NABU750T PO; +NABU750T7 PO
--- NOTE | 2020-08-08 13:20 | RAD ---
DATE: 08/06/2020 EXAM: MAMMO SHAE SCREENING BILATERAL HISTORY: Screening mammogram COMPARISON: 03/24/2019, 03/31/2017, 01/23/2016, 01/02/2015, 10/14/2010 This study was interpreted with the benefit of Computerized Aided Detection (CAD). Breast Density: The breast parenchyma shows scattered fibroglandular densities. Breast parenchyma level B. FINDINGS: There is no suspicious mass, suspicious calcification, or architectural distortion in either breast. A probable intramammary lymph node in the upper outer right breast is unchanged from 2009. IMPRESSION: No evidence of malignancy. BI-RADS CATEGORY: 1 NEGATIVE RECOMMENDED FOLLOW-UP: 12 MONTH FOLLOW-UP PQRS compliance statement: Patient information was entered into a reminder system with a target due date 08/07/2021 for the next mammogram. Mammography is a sensitive method for finding small breast cancers, but it does not detect them all and is not a substitute for careful clinical examination. A negative mammogram does not negate a clinically suspicious finding and should not result in delay in biopsying a clinically suspicious abnormality. "Our facility is accredited by the [employer] Mammography Program." MTDD
== END ==
LOC: MAMMO 12:17
PROVIDERS: ATTEND Obstetrics & Gynecology
DX: Z12.31 Encounter for screening mammogram for malignant neoplasm of breast (principal); N64.89 Other specified disorders of breast
CPT/HCPCS: 77063; 77067

== ENCOUNTER → 2020-08-17 | Outpatient (CLI) | payer OTHER ==
[2016-10-09 18:00] VITALS: BP 116/80
== END ==
LOC: LAB 12:49
PROVIDERS: ATTEND Family Medicine
DX: R30.0 Dysuria (principal)
CPT/HCPCS: 87086

== ENCOUNTER → 2020-09-07 | Outpatient (CLI) | payer OTHER ==
[2016-10-09 18:00] VITALS: BP 116/80
[2020-09-07 10:30] LABS: FREE T4 1.13 ng/dL (0.76-1.46); THYROID STIM HORMONE (TSH) 0.095 uIU/mL (0.358-3.74)
== END ==
LOC: LAB 08:42
PROVIDERS: ATTEND Family Medicine
DX: E03.9 Hypothyroidism, unspecified (principal)
CPT/HCPCS: 36415; 84439; 84443

== ENCOUNTER → 2020-09-07 | Outpatient (CLI) | payer OTHER ==
[2016-10-09 18:00] VITALS: BP 116/80
[2020-09-07 10:31] LABS: FREE T4 1.13 ng/dL (0.76-1.46)
[2020-09-07 23:08] LABS: ESTRADIOL LEVEL 265.4 pg/mL (.); PROGESTERONE 3.5 ng/mL (.)
== END ==
LOC: LAB 08:36
DX: E27.9 Disorder of adrenal gland, unspecified (principal); R68.82 Decreased libido; R63.5 Abnormal weight gain
CPT/HCPCS: 82533; 82627; 82670; 82679; 84144; 84402; 84403; 84439; 84481

== ENCOUNTER → 2020-10-26 | Outpatient (CLI) | payer OTHER ==
[2016-10-09 18:00] VITALS: BP 116/80
== END ==
LOC: SPEC 15:14
PROVIDERS: ATTEND Obstetrics & Gynecology
DX: Z01.419 Encounter for gynecological examination (general) (routine) without abnormal findings (principal)
CPT/HCPCS: 88175

== ENCOUNTER → 2020-12-24 | Outpatient (CLI) | payer OTHER ==
[2016-10-09 18:00] VITALS: BP 116/80
[2020-12-24 20:07] LABS: FSH 6.5 mIU/mL (.); LUTEINIZING HORMONE 14.3 mIU/mL (.)
[2020-12-24 23:08] LABS: ESTRADIOL LEVEL 290.6 pg/mL (.)
[2020-12-25 00:07] LABS: PROGESTERONE 3.8 ng/mL (.)
[2020-12-28 08:19] LABS: TESTOSTERONE FREE 2.04 ng/dL (0.10-0.85)
== END ==
LOC: LAB 12:19
PROVIDERS: ATTEND Obstetrics & Gynecology
DX: R23.2 Flushing (principal)
CPT/HCPCS: 36415; 82627; 82670; 83001; 83002; 84144; 84402; 84403

== ENCOUNTER → 2020-12-24 | Outpatient (CLI) | payer OTHER ==
[2016-10-09 18:00] VITALS: BP 116/80
[2020-12-24 13:14] LABS: BASO % 0 % (0-3); EOS # 0.2 x10^3/uL (0.0-0.7); EOS % 2 % (0-3); HEMATOCRIT 41.4 % (36.0-47.0); HEMOGLOBIN 13.9 g/dL (12.0-15.5); LYMPH # 2.1 x10^3/uL (1.0-4.8); LYMPH % 24 % (24-48); MEAN CORPUSCULAR HEMOGLOBIN 30 pg (25-35); MEAN CORPUSCULAR HGB CONC 34 g/dL (31-37); MEAN CORPUSCULAR VOLUME 90 fL (79-100); MONO # 0.5 x10^3/uL (0.0-1.1); MONO % 5 % (0-9); NEUT # 6.2 x10^3/uL (1.8-7.7); NEUT % 69 % (31-73); PLATELET COUNT 272 x10^3/uL (140-400)
[2020-12-24 13:35] LABS: ALBUMIN 4.2 g/dL (3.4-5.0); ALBUMIN/GLOBULIN RATIO 1.2 (1.0-1.7); CALCIUM 8.6 mg/dL (8.5-10.1); CREATININE 0.8 mg/dL (0.6-1.0); GFR 76.6; POTASSIUM 3.9 mmol/L (3.5-5.1); TOTAL BILIRUBIN 0.3 mg/dL (0.2-1.0); TOTAL PROTEIN 7.7 g/dL (6.4-8.2)
[2020-12-24 13:36] LABS: CHOLESTEROL/HDL RATIO 2.8
[2020-12-24 13:46] LABS: FREE T4 0.93 ng/dL (0.76-1.46); THYROID STIM HORMONE (TSH) 2.217 uIU/mL (0.358-3.74)
== END ==
LOC: LAB 12:13
PROVIDERS: ATTEND Family Medicine
DX: K21.9 Gastro-esophageal reflux disease without esophagitis (principal); E03.9 Hypothyroidism, unspecified
CPT/HCPCS: 36415; 80053; 80061; 84439; 84443; 85025

== ENCOUNTER → 2021-06-18 | Outpatient (CLI) | payer OTHER ==
[2016-10-09 18:00] VITALS: BP 116/80
[~2021-06-18] MED LIST changes: +BUPIVACAINE MPF 0.25% 10 ML VIAL. ONE; +NABU750T11 PO; -NABU750T7 PO
--- NOTE | 2021-06-18 16:00 | PDOC4 ---
Procedure Note: ICD 10 Code: ICD 10 Code: M60.89 M 46.1 Procedure Note: Patient was consented for trigger point injections. Risk were discussed including but not limited to bleeding infection possibility of intravascular injection sequelae spread local anesthetic and numbness pneumothorax and poor results regarding pain control. Patient understands wishes to proceed. Patient sitting position under sterile prep and drape trigger point areas were identified in the right cervical paraspinous posture, right sternocleidomastoid musculature, right interscalene musculature, right trapezius muscle trigger, right rhomboid musculature, right suprascapular musculature, right thoracic paraspinous musculature, right lumbar paraspinous musculature. Each trigger point was injected using 25-gauge needle after negative aspiration at each injection site total of 12 cc 0.25% bupivacaine. Patient tolerated procedure well and had no complications. HAMILTON FRIAS MD Jun 18, 2021 16:00
--- NOTE | 2021-06-18 16:00 | PDOC ---
Progress Note - Pain Clinic Date of Service: DOS: DATE: 06/18/21 TIME: 15:49 Diagnosis: Dx: Lumbar radiculopathy with lumbar degenerative disease lumbar spondylosis Right sacroiliitis Myofascial pain History or Present Illness: HPI: 50-year-old female returns for follow-up status post previous trigger point injection as well as lumbar epidural steroid injections in the past as well as sacroiliac joint injections in the past. Patient returns last seen May 11, 2020 just over a year ago and we had recommended regenerative therapies at that time patient has not had that performed but was evaluated and would still interested in this we discussed some options with her as well today patient complaining of pain in the base the neck right shoulder right upper back mid back low back right sacroiliac region as well as radiating pain around the right flank into the abdomen as well some pain in the right lower extremity patient reports her pain is an 8 on scale 10 is worse over the past week 5 on average 3 its least is a 5 today disturbs sleep significantly disturbs daily activities he is having difficulty with controlling the pain while she is at work and she is working a new [place] in the [place] at [employer], which she enjoys but the pain is becoming more more bothersome with her activities and work activities. Patient's been taking hydrocodone 7.5 mg breaking into 4 pieces and taking it throughout the day as well as ibuprofen and she feels that she is watching the clock all day per her next medication dose to,. She reports while it does help control the pain is not near 100%. Patient reports about 60% improvement overall including any injection she has had as well as medication at this time. Describes pain is aching and sharp dull tight shooting tingling and burning in the base of neck and shoulder as well as tight and spastic in the mid back upper back and low back with some burning sensation as well. Patient reports no loss of motor function no bowel or bladder incontinence. Physical Exam: VS: Blood pressure is 124/76 pulse is 90 respirations 18, temperature 90.4 F height is 5 feet 5 inches weight is 138 pounds PE: PHYSICAL EXAMINATION: GENERAL: The patient is awake, alert, oriented, appropriate, very in pleasant demeanor. HEENT: Shows normocephalic, atraumatic. Extraocular movements are intact and symmetrical. Oral cavity: Mucous membranes moist and pink. Dentition is intact. NECK: Shows anterior throat supple without palpable lymphadenopathy noted. Swallow reflex symmetrical. CHEST: Shows normal on inspection. Breath sounds are clear bilaterally, no rales rhonchi wheezes auscultated. HEART: Shows S1, S2 clear. No murmurs auscultated. ABDOMEN: Soft, nontender, nondistended. No palpable organomegaly is noted. BACK: Shows spine grossly in the midline. Normal-appearing cervical lordotic curvature. Cervical spine shows paraspinous muscles are symmetrical on inspection, on palpation some very firm ropelike musculature throughout the upper middle lower decrease the paraspinous musculature in the right side only not the left also into the sternocleidomastoid on the right and the superior aspect as well as the inferior aspect of the cervical paraspinous and interscalene muscles into the trapezius laterally into the trapezius distribution of the shoulder, with very firm ropelike muscular consistent with trigger point areas of musculature without specific radiation. Trapezius musculature shows significant tenderness with very firm ropelike musculature as well as does the suprascapular musculature on the right side only, the thoracic paraspinous posture shows mild hypertrophy compared to the left on the right side only very firm ropelike musculature throughout the middle and lower distribution of the thoracic paraspinous muscle as well as into the lumbar paraspinous posture which is slightly hypertrophied on the right compared to the left as well very firm ropelike musculature throughout the thoracic and lumbar distributions without radiation but very firm ropelike musculature consistent with trigger point areas of musculature very firm very tender with palpation. There is slightly increased thoracic kyphosis, some mild flattening of the lumbar lordotic curvature. The patient has good rotational motion of the lumbar spine, both laterally as well as extension and flexion without significant difficulty. No tenderness over the spinous processes, sacrum or sacroiliac regions. EXTREMITIES: Lower extremities show deep tendon reflexes 2+ in the patellar and tendo calcaneus tendons. Motor exam is 5 on a scale of 5 with right dorsiflexion, extension, quadriceps and hamstring flexion and 5/5 on the left. Peripheral pulses are one posterior tibial. No peripheral edema is noted bilaterally. Lower extremities are warm and dry to touch, equal in color and appearance. SKIN: Shows warm and dry, good turgor. No edema. No sores, rashes or bruising throughout. Procedure: Procedure: Options discussed with patient. Patient chart was reviewed as her current medication regimen updated current review of systems updated today as well. We will proceed with trigger point injections of the right cervical paraspinous posture, right sternocleidomastoid musculature, right interscalene musculature, right trapezius musculature, right thoracic paraspinous musculature, right lumbar paraspinous musculature. Risk were discussed including not limited to bleeding infection possibility of intravascular injection sequelae spread local anesthetic numbness pneumothorax , and poor results regarding pain control. Patient understands wished to proceed. Patient return to clinic in approximately 3 to 4 weeks for follow-up, was counseled as to return appointment, activity level, and side effects to be aware of. Medication Injected: Med Injected: Patient sitting position under sterile prep and drape trigger point areas were identified in the right cervical paraspinous posture, right sternocleidomastoid musculature, right interscalene musculature, right trapezius muscle trigger, right rhomboid musculature, right suprascapular musculature, right thoracic paraspinous musculature, right lumbar paraspinous musculature. Each trigger point was injected using 25-gauge needle after negative aspiration at each in jection site total of 12 cc 0.25% bupivacaine. Patient tolerated procedure well and had no complications. Condition at Discharge: Condition at Discharge: Condition at discharge is stable, patient tolerated the procedure well had no complications. HAMILTON FRIAS MD Jun 18, 2021 16:00
--- NOTE | 2021-06-18 16:04 | FMN ---
PT PROBLEMS Statement regarding patient opinion for potential alternative treatment outside of regenerative treatment. Patient seen and examined today and recommending trigger point injections at this time we will proceed with those today however still recommend regenerative therapies if not significantly improved after today's treatment. I recommended regenerative evaluation and she underwent this August 2020 with potential for sacroiliac joint regenerative treatments on the right side, as well as potential regenerative treatments for degenerative disc disease and lumbar spine intradiscal treatments if necessary. HAMILTON FRIAS MD Jun 18, 2021 16:04
== END | disposition home or self-care (01) ==
LOC: PNCL 14:35
PROVIDERS: ATTEND Anesthesiology
DX: M51.16 Intervertebral disc disorders with radiculopathy, lumbar region (principal); M47.26 Other spondylosis with radiculopathy, lumbar region; M79.18 Myalgia, other site; M46.1 Sacroiliitis, not elsewhere classified; E03.9 Hypothyroidism, unspecified; K21.9 Gastro-esophageal reflux disease without esophagitis; F41.9 Anxiety disorder, unspecified; F32.9 Major depressive disorder, single episode, unspecified; Z87.440 Personal history of urinary (tract) infections; Z90.49 Acquired absence of other specified parts of digestive tract; Z98.890 Other specified postprocedural states; Z79.899 Other long term (current) drug therapy; Z72.89 Other problems related to lifestyle; Z88.8 Allergy status to other drugs, medicaments and biological substances
CPT/HCPCS: 20553; J3490

== ENCOUNTER → 2021-09-04 | Outpatient (CLI) | payer OTHER ==
[2016-10-09 18:00] VITALS: BP 116/80
[~2021-09-04] MED LIST changes: -BUPIVACAINE MPF 0.25% 10 ML VIAL. ONE; +BUPIVACAINE MPF 0.25% 30 ML VIAL. ONE; +CYCL10TA19 PO; -CYCL10TA2 PO
--- NOTE | 2021-09-04 12:31 | PDOC ---
Progress Note - Pain Clinic Date of Service: DOS: DATE: 09/04/21 TIME: 12:25 Diagnosis: Dx: Myofascial pain Lumbar radiculopathy with lumbar degenerative disease lumbar spondylosis Right sacroiliitis History or Present Illness: HPI: 50-year-old female returns for follow-up status post trigger point injections last in June 18, 2021. Patient reports she did very well about 6 weeks of decreased pain by at least 50% sometimes 75% initially with the pain returning now in the base the neck and shoulder more in the right side now than the left but pain in the left side of the low back as well also pain mid back upper back low back right side of the neck as well as some fullness sensation in the right ear. Patient is been using Lidoderm patches on the low back and mid back as well as her shoulder which do help, but only by about 50% as well patient reports is getting more tight and spastic feeling in the neck and shoulder upper back mid back low back rate is aching sharp tight burning describes an 8 on scale 10 is worse over the past weeks 5 on average 3 its least is a 5 today. Patient reports it wakes her from sleep every 3-4 hours initially to do much better with distance walking doing house activities work activities sleeping with better ability but now it is beginning to disturb sleep as well. Patient reports no motor or sensory deficits also some pain in the right flank causing pain in the right rib cage and a pulling sensation she has had multiple physical therapy treatments is doing stretching strength exercise and heat application as well all which are helpful but only temporary. Physical Exam: VS: Blood pressure is 104/70 pulse is 81 respirations 18 temperature is 98.1 F weight is 143 pounds PE: PHYSICAL EXAMINATION: GENERAL: The patient is awake, alert, oriented, appropriate, very pleasant in demeanor HEENT: Shows normocephalic, atraumatic. Extraocular movements are intact and symmetrical. Oral cavity: Mucous membranes moist and pink. Dentition is intact. NECK: Shows anterior throat supple without palpable lymphadenopathy noted. Swallow reflex symmetrical. CHEST: Shows normal on inspection. Breath sounds are clear bilaterally, distant but no rales or rhonchi. HEART: Shows S1, S2 clear. No murmurs auscultated. ABDOMEN: Soft, nontender, nondistended. No palpable organomegaly is noted BACK: Shows spine grossly in the midline. Normal-appearing cervical lordotic curvature. Cervical paraspinous muscles show symmetrical with inspection on palpation some very firm ropelike muscular throughout the upper middle lower decrease the paraspinous muscles on the right and to the superior medial tr apezius very firm ropelike musculature consistent with trigger point areas of musculature also into the lateral trapezius as well as the suprascapular and infrascapular regions very firm ropelike muscles again consistent with trigger point areas of musculature but without radiation. This is true in the right rhomboid as well as the mid and lower thoracic paraspinous musculature on the right only left side is supple without specific trigger points palpated. There is slightly increased thoracic kyphosis, some minor flattening of the lumbar lordotic curvature. Lumbar paraspinous muscles show symmetrical on inspection, on palpation shows some moderate tenderness diffusely throughout the upper, middle and lower distribution of the paraspinous muscles, with very firm ropelike musculature throughout the upper middle lower decrease in the lumbar paraspinous posture on the right very tender consistent with trigger point areas of musculature without radiation. Significant tenderness over the posterior superior iliac spine on the right side as well as the superior aspect of the sacroiliac joint itself but without radiation on palpation.. The patient has good rotational motion of the lumbar spine, both laterally as well as extension and flexion without significant difficulty. No tenderness over the spinous processes, sacrum or sacroiliac regions. EXTREMITIES: Lower extremities show deep tendon reflexes 2 in the patellar and tendo calcaneus tendons. Motor exam is 5 on a scale of 5 with right dorsiflexion, extension, quadriceps and hamstring flexion and 5/5 on the left. Peripheral pulses are 1+ posterior tibial. No peripheral edema is noted bilaterally. Lower extremities are warm and dry to touch, equal in color and appearance. Upper extremities show deep tendon reflexes 2+ in the bicep and triceps tendons, motor exam strong with inspector and clerk strength rated 5 out of 5 as is bicep tricep flexion and equal. SKIN: Shows warm and dry, good turgor. No edema. No sores, rashes or bruising throughout. Procedure: Procedure: Options discussed with patient. Patient chart reviews her current medication regimen updated current review of systems updated today as well. We will proceed with trigger point injections of the identified musculature in the right cervical paraspinous posterior right trapezius right suprascapular and infrascapular muscular right rhomboid muscular right thoracic paraspinous muscular and right lumbar paraspinous musculature. Risks were discussed including but not limited to, bleeding infection possibility of intravascular injection sequelae spread local anesthetic numbness pneumothorax, and poor results regarding pain control. Patient understands wishes to proceed. Patient will return to clinic in approximate 4 weeks for follow-up, was counseled return appointment, activity level, and side effect to wear. Medication Injected: Med Injected: Patient sitting position under sterile prep and drape trigger points were identified in the cervical paraspinous posterior trapezius musculature suprascapular muscular infrascapular musculature thoracic paraspinous muscular rhomboid musculature and lumbar paraspinous musculature. Using a 25-gauge needle after negative aspiration each injection site total of 14 cc 0.25% ropivacaine was injected. Patient tolerated procedure well had no complications. Condition at Discharge: Condition at Discharge: Condition at discharge is stable. HAMILTON FRIAS MD Sep 04, 2021 12:31
--- NOTE | 2021-09-04 12:32 | PDOC4 ---
Procedure Note: ICD 10 Code: ICD 10 Code: M60.89 Procedure Note: Patient was consented for trigger point injections. Risk were discussed including but not limited to bleeding infection possibility of intravascular injection sequelae spread local anesthetic numbness pneumothorax and portals regarding pain control. Patient understands wishes to proceed. Patient sitting position under sterile prep and drape trigger points were identified in the cervical paraspinous posterior trapezius musculature suprascapular muscular infrascapular musculature thoracic paraspinous muscular rhomboid musculature and lumbar paraspinous musculature. Using a 25-gauge needle after negative aspiration each injection site total of 14 cc 0.25% ropivacaine was injected. Patient tolerated procedure well had no complications. HAMILTON FRIAS MD Sep 04, 2021 12:32
== END | disposition home or self-care (01) ==
LOC: PNCL 10:58
PROVIDERS: ATTEND Anesthesiology
DX: M51.16 Intervertebral disc disorders with radiculopathy, lumbar region (principal); M47.26 Other spondylosis with radiculopathy, lumbar region; M79.18 Myalgia, other site; M46.1 Sacroiliitis, not elsewhere classified; K21.9 Gastro-esophageal reflux disease without esophagitis; E03.9 Hypothyroidism, unspecified; F41.9 Anxiety disorder, unspecified; F32.9 Major depressive disorder, single episode, unspecified; Z87.440 Personal history of urinary (tract) infections; Z79.899 Other long term (current) drug therapy; Z90.49 Acquired absence of other specified parts of digestive tract; Z98.890 Other specified postprocedural states; Z72.89 Other problems related to lifestyle; Z88.8 Allergy status to other drugs, medicaments and biological substances
CPT/HCPCS: 20553; J3490

== ENCOUNTER → 2021-12-26 | Outpatient (CLI) | payer BC, OTHER ==
[2016-10-09 18:00] VITALS: BP 116/80
[~2021-12-26] MED LIST changes: -BUPIVACAINE MPF 0.25% 30 ML VIAL. ONE
--- NOTE | 2021-12-26 13:31 | RAD ---
EXAMINATION: MG BILAT SCREEN+SHAE CLINICAL HISTORY: Screening TECHNIQUE: Digital craniocaudal and mediolateral oblique views of the bilateral breasts obtained with 3-D tomosynthesis. COMPARISON: 08/06/2020, 03/24/2019, 03/31/2017, 01/23/2016, 01/02/2015 BREAST COMPOSITION: There are scattered areas of fibroglandular density. FINDINGS: No evidence of suspicious mass, calcifications, or areas of architectural distortion. IMPRESSION: No mammographic evidence of malignancy. BI-RADS ASSESSMENT: Category 1: Negative RECOMMENDATION: Return for routine bilateral screening mammogram in one year. PQRS compliance statement - Patient information was entered into a reminder system with a target due date for the next mammogram. "Our facility is accredited by the [employer] Mammography [employer]." Electronically signed by: Suhas Nguyen DO (12/26/2021 1:29 PM) [id number]
== END ==
LOC: MAMMO 12:33
PROVIDERS: ATTEND Family Medicine
DX: Z12.31 Encounter for screening mammogram for malignant neoplasm of breast (principal)
CPT/HCPCS: 77063; 77067